=== PATIENT | female | born 2000 | race Two or more races ===

== ENCOUNTER 2024-12-29 23:27 | Emergency (ER) | payer BC, OTHER ==
[~2024-12-29] VITALS: Ht 172.7 cm; Wt 105.5 kg
[2024-12-30 00:41] LABS: Hemoglobin 12.8 g/dL (12.2-16.2)
[2024-12-30 00:43] LABS: Hematocrit 38.9 % (36.0-46.0); Mean Corpuscular Hemoglobin 27.1 pg (28.0-32.0); Mean Corpuscular Volume 82.5 fL (80.0-100.0); Nucleated Red Blood Cells % 0.0 %
--- NOTE | 2024-12-30 00:43 | ED.PDOC ---
History of Present Illness HPI Comments 24 y/o F presents with c/c right thigh pain and swelling and fever. 2x day history endorsement of symptoms following initial, unprovoked and atraumatic onset. Patient comments on this being the third time this has happened to her over the past few months. Reports on recent wide incision surgery in 07/16/24 to thigh and has been treated for said symptoms in the past with antibiotics. Denial of any further acute symptoms, such as numbness, shortness of breath, or chest pain. 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 TECHNICIAN Hx Family History Family History: Unknown Social History Smoker: Non-Smoker Alcohol: Denies ETOH Use Drugs: Denies Drug Use Lives In: Home All Other Systems: Reviewed and Negative (As per HPI) Physical Exam General Appearance: No Apparent Distress, Obese HEENT: Normal ENT Inspection, Pharynx Normal, TMs Normal Neck: Full Range of Motion, Non-Tender, Normal, Normal Inspection Respiratory: Chest Non-Tender, Lungs Clear, No Accessory Muscle Use, No Respiratory Distress, Normal Breath Sounds Cardiovascular: No Edema, No JVD, No Murmur, No Gallop, Normal Peripheral Pulses, Regular Rate/Rhythm Breast Exam: Deferred Gastrointestinal: No Organomegaly, Non Tender, No Pulsatile Mass, Normal Bowel Sounds, Soft Genitalia: Deferred Pelvic: Deferred Rectal: Deferred Extremities: No calf tenderness, Normal capillary refill, Normal inspection, Normal range of motion, No pedal edema, Tender (right thigh, mild tenderness ) Musculoskeletal : Apperance: Normal Neurologic: Alert, parcel wrapper II-XII nml as Tested, No Motor Deficits, Normal Affect, Normal Mood, No Sensory Deficits Cerebellar Function: Normal Reflexes: Normal Skin: Dry, Normal Color, Warm Lymphatic: No Adenopathy Was a procedure done? Was a procedure done?: No Differential Dx Considerations may include: cellulitis, dermatitis, DVT, viral, among others X-Ray, Labs, Meds, VS Vital Signs Date Time Temp Pulse Resp B/P (MAP) Pulse Ox O2 Delivery O2 Flow Rate FiO2 12/30/24 02:00 100 19 98 Room Air 12/30/24 02:00 99.0 100 19 130/67 (88) 98 99.0 12/29/24 23:28 100.0 107 18 158/92 97 100.0 Lab Test 12/30/24 00:29 Range/Units White Blood Count 12.6 H 4.4-10.8 10^3/uL Red Blood Count 4.72 4.0-5.20 10^6/uL Hemoglobin 12.8 12.2-16.2 g/dL Hematocrit 38.9 36.0-46.0 % Mean Corpuscular Volume 82.5 80.0-100.0 fL Mean Corpuscular Hemoglobin 27.1 L 28.0-32.0 pg Mean Corpuscular Hemoglobin Concent 32.8 32.0-36.0 g/dL Red Cell Distribution Width 16.7 H 11.8-14.3 % Platelet Count 243 140-450 10^3/uL Mean Platelet Volume 8.2 6.9-10.8 fL Neutrophils (%) (Auto) 75.3 37.0-80.0 % Lymphocytes (%) (Auto) 16.6 10.0-50.0 % Monocytes (%) (Auto) 6.1 0.0-12.0 % Eosinophils (%) (Auto) 1.7 0.0-7.0 % Basophils (%) (Auto) 0.3 0.0-2.0 % Neutrophils # (Auto) 9.5 H 1.6-8.6 10 ^3/uL Lymphocytes # (Auto) 2.1 0.4-5.4 10 ^3/uL Monocytes # (Auto) 0.8 0-1.3 10 ^3/uL Eosinophils # (Auto) 0.2 0-0.8 10 ^3/uL Basophils # (Auto) 0 0-0.2 10 ^3/uL Nucleated Red Blood Cells 0.0 % Prothrombin Time 11.1 9.3-11.8 sec Prothrombin Time INR 1.05 0.9-1.15 Activated Partial Thromboplast Time 31.6 24.5-34.5 SEC Sodium Level 140 136-145 mmol/L Potassium Level 3.8 3.5-5.1 mmol/L Chloride Level 107 98-107 mmol/L Carbon Dioxide Level 24 20-31 mmol/L Anion Gap 9 5-15 Blood Urea Nitrogen < 5 L 9-23 mg/dL Creatinine 0.77 0.550-1.02 mg/dL Glomerular Filtration Rate Calc 110 >90 mL/min BUN/Creatinine Ratio 6.5 L 10.0-20.0 Serum Glucose 93 74-106 mg/dL Calcium Level 9.2 8.7-10.4 mg/dL Total Bilirubin 0.4 0.2-1.0 mg/dL Aspartate Amino Transferase (AST) 17 13-40 U/L Alanine Aminotransferase (ALT) 17 7-40 U/L Alkaline Phosphatase 94 46-116 U/L Total Protein 8.2 5.7-8.2 g/dL Albumin 4.6 3.2-4.8 g/dL Current Medications Medications (Trade) Dose Ordered Sig/Melissa Route Start Time Stop Time Status Last Admin Amoxicillin/ Clavulanate Potassium (Augmentin Tablet) 875 mg ONCE ONCE PO 12/30/24 01:45 12/30/24 01:46 DC 12/30/24 02:00 Time of 1ST Reevaluation: 00:50 Reevaluation 1ST: Unchanged Patient Education/Counseling: Diagnosis, Treatment, Need For Follow Up Family Education/Counseling: No Family Present SEPSIS Sepsis Screen Date sepsis recognized/suspect: Dec 29, 2024 Time Sepsis recognized/suspect: 2327 Recent Procedure: No On Antibiotic Therapy: No Respiratory Rate >20: No Heart Rate >90: Yes Temp<36 C (96.8 F) or >38.3 C: No SBP <90 or MAP <65 mmHG: No New Acute Mental Status Change: No Is the patient on CPAP, BIPAP,: No Physician Orders Rt Lower Dvt (12/30/24 00:18) Vital Signs Date Time Temp Pulse Resp B/P (MAP) Pulse Ox O2 Delivery O2 Flow Rate FiO2 12/30/24 02:00 100 19 98 Room Air 12/30/24 02:00 99.0 100 19 130/67 (88) 98 99.0 12/29/24 23:28 100.0 107 18 158/92 97 100.0 Laboratory Tests Test 12/30/24 00:29 White Blood Count 12.6 10^3/uL (4.4-10.8) H Medications Medications Dose Ordered Sig/Melissa Route Start Time Stop Time Status Last Admin Dose Admin Amoxicillin/ Clavulanate Potassium 875 mg ONCE ONCE PO 12/30/24 01:45 12/30/24 01:46 DC 12/30/24 02:00 Departure 1 Departure Time of Disposition: 02:30 Impression: Primary Impression: Hidradenitis suppurativa of multiple sites Disposition: 01 HOME / SELF CARE / HOMELESS Condition: Stable e-Prescriptions Sulfamethoxazole W/Trimethopri (Bactrim Ds Tablet) 1 Tab Tb 1 TAB PO BID for 7 Days, #14 TAB Prov: ALEJANDRA PEREZ MD 12/30/24 Discharged With: Self Critical Care Note Critical Care Time?: No Stability Stability form required: No Heart Score Heart Score: Heart Score Response (Comments) Value History N/A 0 EKG N/A 0 Age N/A 0 Risk Factors N/A 0 Troponin N/A 0 Total 0 I personally scribed for ALEJANDRA PEREZ MD ([email or web address]) on 12/30/24 at 00:43. Electronically submitted by Thomas Cueva ([email or web address]). ALJEANDRA PEREZ MD Dec 30, 2024 00:43
[2024-12-30 00:58] LABS: INR 1.05 (0.9-1.15); Partial Thromboplastin Time 31.6 SEC (24.5-34.5); Prothrombin Time 11.1 sec (9.3-11.8)
[2024-12-30 01:09] LABS: Alanine Aminotransferase 17 U/L (7-40); Albumin 4.6 g/dL (3.2-4.8); Alkaline Phosphatase 94 U/L (46-116); Anion Gap 9 (5-15); BUN/Creatinine Ratio 6.5 (10.0-20.0); Bilirubin, Total 0.4 mg/dL (0.2-1.0); Blood Urea Nitrogen < 5 mg/dL (9-23); Calcium 9.2 mg/dL (8.7-10.4); Carbon Dioxide 24 mmol/L (20-31); Chloride 107 mmol/L (98-107); Glucose 93 mg/dL (74-106); Potassium 3.8 mmol/L (3.5-5.1); Sodium 140 mmol/L (136-145); Total Protein 8.2 g/dL (5.7-8.2)
--- NOTE | 2024-12-30 01:12 | DVH ---
Right lower extremity venous duplex Clinical History: RLE pain / swelling Comparison: US PELVIS NON-OB WITH TV on DOS: 05/27/24, US EXTREMITY NON VASC LMTD on DOS: 04/29/22 Technique: Duplex Doppler evaluation of the deep venous system of the right lower extremity from the common femo ral vein to the popliteal vein including color Doppler and spectral/pulsed waveform analysis was perf ormed. Findings: The common femoral vein demonstrates appropriate compressibility and waveform variability. There is compressibility/patency of the great saphenous vein at the proximal thigh. The femoral vein demonstrates appropriate compressibility and waveform variability. The deep femoral vein demonstrates appropriate compressibility and waveform variability. The popliteal vein demonstrates appropriate compressibility and waveform variability. There is normal compressibility at the tibioperoneal trunk. Prominent inguinal lymph node measures 2.0 x 1.6 x 1.5 cm. Impression: 1. No right femoropopliteal venous thrombosis. 2. Prominent right inguinal lymph node.
[2024-12-30] MEDS ORDERED: BACDST PO (01:42)
[2024-12-30 02:00] VITALS: BP 130/67; PULSE 100; RESP 19; TEMP 99; O2SAT 98
[2024-12-30] MEDS: AMOXICILLIN/CLAVUL 875 MG TAB PO ONE (02:00)
== END 2024-12-30 02:00 | disposition home or self-care (01) ==
LOC: EEVIPCON 23:27 → ER 23:27
DX: L73.2 Hidradenitis suppurativa (principal); Z79.899 Other long term (current) drug therapy
CPT/HCPCS: 36415; 80053; 85025; 85610; 85730; 93971